=== PATIENT | female | born 1960 | race Caucasian/White ===

== ENCOUNTER 2023-01-20 07:36 | Emergency (ER) | payer SELFPAY ==
[~2023-01-20] VITALS: Ht 162.6 cm; Wt 73.6 kg
[2023-01-20] MEDS ORDERED: LEVO-T125 MCG PO (07:54)
[2023-01-20] MEDS ORDERED: PROGESTERONE100 MG (08:29)
[2023-01-20 08:32] LABS: BASO # 0.05 K/mm3 (0.02-0.10); EOS % 1.4 % (1.0-5.0); HEMATOCRIT 42.2 % (37.0-47.0); HEMOGLOBIN 13.9 g/dL (12.5-16.0); LYMPH# 1.07 K/mm3 (1.50-4.00); MEAN CELL VOLUME 90 fl (78-100); MEAN CORPUSCULAR HEMOGLOBIN 30 pg (27-31); MEAN CORPUSCULAR HGB CONC 33 g/dL (33-37); MEAN PLATELET VOLUME 8.7 fl (7.4-10.4); MONO # 0.52 K/mm3 (0.20-0.80); NEU # 5.16 K/mm3 (1.40-6.50); PLATELET COUNT 249 K/mm3 (130-400); RED BLOOD COUNT 4.67 M/mm3 (4.10-5.30); RED CELL DISTRIBUTION WIDTH 12.5 % (11.5-14.5); WHITE BLOOD COUNT 6.9 K/mm3 (4.8-10.8)
[2023-01-20 08:44] LABS: ALBUMIN 4.1 g/dL (3.4-4.8); POTASSIUM 4.4 mmol/L (3.5-5.1)
[2023-01-20 08:45] LABS: CALCIUM 9.3 mg/dL (8.3-10.5)
[2023-01-20 08:47] LABS: TOTAL PROTEIN 7.6 g/dL (6.2-8.1)
[2023-01-20 08:48] LABS: TOTAL BILIRUBIN 0.3 mg/dL (0.2-1.2)
[2023-01-20 09:29] LABS: PH-URINE 7.5 (5.0 - 8.0); URINE APPEARANCE CLEAR; URINE BILIRUBIN NEGATIVE (NEGATIVE); URINE BLOOD NEGATIVE (NEGATIVE); URINE COLOR YELLOW; URINE GLUCOSE NEGATIVE (NEGATIVE); URINE KETONE NEGATIVE (NEGATIVE); URINE LEUKOCYTE ESTERASE NEGATIVE (NEGATIVE); URINE NITRATE NEGATIVE (NEGATIVE); URINE PROTEIN(semi-quant) 1+ (NEGATIVE); URINE UROBILINOGEN NORMAL (NORMAL); URINE WBC 0-1 /hpf (0-3)
[2023-01-20] MEDS ORDERED: TOPCARE OMEPRAZ20 MG PO (09:32)
[2023-01-20 09:36] VITALS: BP 136/78
== END 2023-01-20 09:53 | disposition home or self-care (01) ==
LOC: ED 07:36
PROVIDERS: Family Medicine
DX: K21.9 Gastro-esophageal reflux disease without esophagitis (principal); F41.9 Anxiety disorder, unspecified; M25.512 Pain in left shoulder; Z28.310 Unvaccinated for COVID-19